=== PATIENT | female | born 1970 | race Caucasian/White ===

== ENCOUNTER 2021-04-14 09:17 | Emergency (ER) | payer SELFPAY ==
--- OUTSIDE RECORDS SUMMARY | 2021-04-14 09:28 | XMS REPORT | Continuity of Care Document ---
:1970 Author Organization [facility] t Address [address] [place] [address] Care Team Providers Name Role Phone Sharpless Primary Care Physician YAHIR Attending Clinician Unavailable Holly MOODY Attending Clinician Unavailable MICHOACANO Attending Clinician Unavailable NICK Attending Clinician Unavailable VINNY VALENTINO Attending Clinician Unavailable Yon HARRISON Admitting Clinician Unavailable BRINDA MOODY Admitting Clinician Unavailable DR ANUM Admitting Clinician Unavailable MICHOACANO Admitting Clinician Unavailable NICK Admitting Clinician Unavailable VINNY VALENTINO Admitting Clinician Unavailable Problems Condition Condition Condition Status Onset Resolution Last Treating Co mments Source Name Details Category Date Date Treatment Clinician Date ankle pain ankle pain Diagnosis Active 2017-[address] [facility] ([facility]SA) Abdominal Abdominal Problem Active [facility] pain [facility] (LU[facility]LI V/SA) Nausea and Nausea and Problem Active [facility] vomiting vomiting 05-08 [facility] ([facility]LI [facility]/SA) Spasm Spasm Problem Active [facility] (LUF/LI V/SA) Anxiety Anxiety Problem Active [facility] (LUF/LI V/SA) Migraine Migraine Problem [facility] ([facility]LI [facility]/SA) Headache [facility] (LUF/LI V/SA) Syncope Syncope Problem Active [facility] (LUF/LI V/SA) Ischemic Ischemic Disease [facility] Chest wall Chest wall Problem Active [facility] pain pain 9-10 [facility] (LU[facility]/LI V/SA) Migraine Migraine Problem [facility] aura aura [facility]: [facility] (LUF/LI V/SA) CVA/HEADAC CVA/HEADAC Diagnosis Active [facility]- [facility] (LUF/LI V/SA) Nausea and Nausea and Problem Active [facility] vomiting vomiting 5[facility] (LUF/LI V/SA) Abdominal Abdominal Problem Active [facility] (LUF/LI V/SA) TIA TIA Problem [facility]) BREAST BREAST Problem Active [facility] ([facility]LI [facility]) MIGRAINE MIGRAINE Problem [facility] (LUF/LI V/SA) Allergies, Adverse Reactions, Alerts This patient has no known allergies or adverse reactions. Family History Family Member Diagnosis Comments Start Date Stop Date Source Father HEART DISEASE [facility]) Father HYPERTENSION [facility] (LUF/AGUS/SA) Maternal Grandfather COPD [facility] (LUF/AGUS/SA) Maternal Grandmother COPD [facility] (LUF/AGUS/SA) Mother CANCER [facility] (LUF/AGUS/SA) Mother COPD [facility] (LUF/AGUS/SA) Paternal Grandfather CANCER [facility] (LUF/AGUS/SA) Paternal Grandfather COPD [facility] (LUF/AGUS/SA) Paternal Grandmother CANCER [facility] (F/AGUS/SA) Social History Social Habit Start Date Stop Date Quantity Comments Source Sex Assigned At [facility] Cigarettes smoked 2016-12-02 2016-12-02 [facility] - current (pack per 00:00:00 00:00:00 [facility] day) - Reported Cigarette 2016-12-02 2016-12-02 [facility] - pack-years 00:00:00 00:00:00 [facility] Alcohol intake 2016-12-02 2016-12-02 Current [facility] es - 00:00:00 00:00:00 non-drinker of Medical Ce nter alcohol (finding) Smoking Status Start Date Stop Date Source Current every day smoker 2016-12-02 00:00:00 [facility] Medications Ordered Filled Start Stop Current Ordering Indication Dosage Frequency Signature Comments Components Source Medication Medication Date Date Medication? Clinician (SIG) Name Name Amitriptyli Amitriptyli Yes 50MG Q2W [facility] - Hydrochlori Hydrochlori 00:00: [facility] de 25 MG de 25 MG 00 l Oral Tablet Oral Tablet ( LUF/LI V/SA) ASPIRIN ASPIRIN Yes 81MG [facility] TABLET TABLET 6[facility] - CHEWABLE CHEWABLE 00:00: [facility] 00 l (LUF/LI V/SA) Sertraline Sertraline 2014-0 Yes [address]MG [facility] 50 MG Oral 50 MG Oral 6-15 [facility] es - Tablet Tablet 00:00: [facility] 00 [facility] (LUF/LI V/SA) Acetaminoph Acetaminoph Yes pain 1tab Q5H [facility] en 300 MG / en 300 MG / L ukes - Codeine Codeine [facility] Phosphate Phosphate l 30 MG Oral 30 MG Oral (LILIYA F/LI Tablet Tablet V/SA) Lorazepam Lorazepam Yes .5mg BID [facility]) Tamoxifen Tamoxifen Yes 20mg QD [facility] Oral 20 MG Oral [facility] - Tablet Tablet [facility] (LUF/LI V/SA) Immunizations Ordered Immunization Filled Immunization Date Status Commen ts Source Name Name FLU VACCINE JUL 2013 FLU VACCINE JUL 2013 2018-09-13 Completed [facility] - 00:00:00 [facility] (LUF/AGUS/SA) pneumococcal pneumococcal 2013-07-14 Completed [facility] es - vaccine, NOS vaccine, NOS 00:00:00 [facility] (LUF/AGUS/SA) Vital Signs Vital Name Observation Time Observation Value Comments Source Respiratory Rate 2018-11-18 13:15:00 16 /min [facility] (LUF/AGUS/SA) Body Temperature 2018-11-18 10:55:[address] [facility] (LUF/AGUS/SA) Pulse Rate 2018-11-18 10:55:00 88 /min [facility] (LUF/AGUS/SA) O2% BldC Oximetry 2018-11-18 10:55:00 98 % [facility] (LUF/AGUS/SA) BP Systolic 2018-11-18 10:55:00 124 mm[Hg] [facility] (LUF/AGUS/SA) BP Diastolic 2018-11-18 10:55:00 66 mm[Hg] [facility] (LUF/AGUS/SA) Weight Measured 2018-11-18 04:00:00 125.44 lbs [facility] (LUF/AGUS/SA) Height 2018-11-17 13:13:00 65 in [facility] (LUF/AGUS/SA) BMI (Body Mass Index) 2018-11-17 13:13:00 20.8 kg/m2 [facility] (LUF/AGUS/SA) Pulse Rate 2018-09-07 15:51:00 91 /min [facility] (LUF/AGUS/SA) Respiratory Rate 2018-09-07 15:51:00 18 /min [facility] (F/AGUS/SA) O2% BldC Oximetry 2018-09-07 15:51:00 [address] % [facility] (LUF/AGUS/SA) BP Systolic 2018-09-07 15:51:00 145 mm[Hg] [facility] (LUF/AGUS/SA) BP Diastolic 2018-09-07 15:51:00 71 mm[Hg] [facility] (LUF/AGUS/SA) Height 2018-09-07 15:51:00 65 in [facility] (LUF/AGUS/SA) Weight Measured 2018-09-07 15:51:00 121.25 lbs [facility] (LUF/AGUS/SA) BMI (Body Mass Index) 2018-09-07 15:51:[address] [facility] (LUF/AGUS/SA) Body Temperature 2018-09-07 15:51:[address] [facility] (LUF/AGUS/SA) Body Temperature 2018-03-29 14:46:[address] [facility] (LUF/AGUS/SA) Respiratory Rate 2018-03-29 14:46:00 22 /min [facility] (LUF/AGUS/SA) O2% BldC Oximetry 2018-03-29 14:46:00 100 % [facility] (LUF/AGUS/SA) BP Systolic 2018-03-29 14:46:00 121 mm[Hg] [facility] (LUF/AGUS/SA) BP Diastolic 2018-03-29 14:46:00 77 mm[Hg] [facility] (LUF/AGUS/SA) Height 2018-03-29 14:46:00 65 in [facility] (LUF/AGUS/SA) Weight Measured 2018-03-29 14:46:00 114.64 lbs [facility] (LUF/AGUS/SA) BMI (Body Mass Index) 2018-03-29 14:46:[address] [facility] (F/AGUS/SA) Procedures This patient has no known procedures. Encounters Start End Encounter Admission Attending Care Care Encounter Source Date/Time Date/Time Type Type Clinicians Facility Department ID 2018-11-17 2018-11-18 HEADACHE E TARAPASADE, [facility] [id number] 14:35:00 16:30:00 MARCIA [facility] [address] (LUF[address], V/SA) [place] [id number] 2018-09-07 2018-09-07 Inpatient 1 FRANSISCO, [facility] [id number] 14:09:00 16:58:00 GISELE PARRY [facility] [address] (LUF/[address], V/SA) [place] [address] 2018-03-29 2018-03-29 RIGHT 1 ANUM, [facility] [id number] [facility] 14:25:00 20:41:00 LOWER [facility] s [facility], [facility] PAIN [address] (LUF/LI [address], V/SA) [place] [address] Results Test Description Test Time Test Comments Results Result Comments Source HOMOCYSTEINE, CARDIOVASCULAR 2018-11-19 09:32:00 Test Item Value Reference Range Interpretation Comme nts HOMOCYST(E)INE, PLASMA (test code = 087069) 6.2 umol/L 0.0-15.0 N PERFORMED AT: [facility] [address] [id number] RETIREMENT ACTUARY: Rashaad Estrella MD PHONE: [phone] 18:31:00 Test Item Value Reference Range Interpretation Comments FT (test code = RPR) Non-Reactive (qualifier Non-Reactive N value) GLYCOSALATED [id number] 08:36:00 Test Item Value Reference Range Interpretation Comments Hemoglobin A1C (test 5.8 % 4.3-6.0 A code = GLYCO) Mean Plasma Glucose 129 mg/dl 90-180 WHEN CHAPARRO T RESULTS FOR (test code = MPG) A1C EXCEED 14.0, THE LINEAR LIMIT OF THE INSTRUMENT, THE CALCULATED RESU LT FOR THE MEAN GLUCOS E IS NOT RELIABLE. TSH (Ultra Sensitive)2018-11-18 05:59:00 Test Item Value Reference Range Interpretation Comments TSH (test code = TSH) 1.18 mIU/L 0.35-3.74 [id number] 05:59:00 Test Item Value Reference Range Interpretation Comments Sodium (test code = 144 mmol/l 137-145 NA) Potassium (test 4.1 mmol/l 3.5-5.1 code = K) Chloride (test code 112 mmol/l 98-107 H = CL) Calcium (test code 8.0 mg/dl 8.5-10.1 L = CALC) CO2 (test code = 23 mmol/l 21-32 CO2) Glucose (test code 99 mg/dl 74-106 = GLU) BUN (test code = 13.0 mg/dl 7.0-18.0 BUN) Creatinine (test 0.5 mg/dl 0.5-1.3 code = CREA) EGFR if >60 [place] (test code mL/min/1.73m\\ = EGFRAA) S\\2 EGFR if Non- >60 Estimate d Glomerular [place] (test code mL/min/1.73m\\ Filtrat ion Rate (eGFR) = EGFRNA) S\\2 Reference Inter vals Decision Points for 18 years and older and average body ma ss: >= 60 Does not exc lude kidney disease. 30 - 59 Suggests modera te chronic kidney disease and indicat es the need for furthe r investigation including asses sment of proteinuria and cardiovascular factors. < 30 Usually in dicates a need for refe rral for assessment and management of c hronic kidney failure. CORONARY [id number] 05:59:00 Test Item Value Reference Range Interpretation Comments Triglycerides (test 250 mg/dl 0-149 H Trig. In terpretation code = TRIG) Guide: Nor mal: < 150 mg/dl Borderline High : 150 - 199 mg/dl High: 200 - 499 mg/dl Very High: >= 5 00 mg/dl Cholesterol (test code 185 mg/dl 0-200 = CHOL) HDL (test code = HDL) 37 mg/dl 35-86 dLDL (test code = 107 mg/dl 0-99 H Direct LDL DILDL) Intrepretations : Optimal: <100 mg/dl Suspect: 100 - 129 mg/dl Border line: 130 - 159 mg/dl High: 160 - 189 mg/dl Very High: >1 90 mg/dl Risk Factor (test code 5.0 0.0-4.4 H Risk Factor = RFACT) Men Women R isk Factor 3.4 3.3 1/ 2 Average 5.0 4.4 Average 9.6 7.1 2X Average 24.0 11.0 3X Average vLDL (test code = 50 mg/dl 20-40 H VLDL) CBC (HEMOGRAM ONLY)2018-11-18 05:39:00 Test Item Value Reference Range Interpretation Comments WBC (test code = 5.30 10\\S\\3/ul 4.80-10.80 WBC) RBC (test code = 3.28 10\\S\\6/ul 4.20-5.40 L RBC) Hemoglobin (test 11.9 gm/dl 12.0-14.0 L code = HGB) Hematocrit (test 35.2 % 37.0-47.0 L code = HCT) MCV (test code = 107.3 fL 81.0-99.0 H MCV) MCH (test code = 36.3 pg 27.0-31.0 H MCH) MCHC (test code = 33.8 gm/dl 33.0-37.0 MCHC) RDW (test code = 15.3 % 11.5-14.5 H RDWVC) Platelet (test code 334 10\\S\\3/ul 130-400 = PLT) MPV (test code = 8.7 fL 7.4-10.4 A "NOT MEASUR ED" MPV) RESULTS ARE DIS PLAYED WHEN THE INSTRU MENT HAS A SUPPRESSE D OR UNREPORTABLE RE SULT. THIS WILL MOST OFTEN HAPPEN WITH THE MPV WHEN THERE IS A N ABNORMAL PLATEL ET DISTRIBUTION DU E TO A CRITICAL LOW VA LUE OR PLATELET CLUMPI NG. THE RDW MAY BE SUPPRESSED IF T HERE ARE MULTIPLE PE AKS PRESENT ON THE RBC HISTOGRAM. IN THIS CASE, A MANUAL REVIEW OF THE SLIDE WI LL BE PERFORMED, AND RBC MORPHOLOGY WILL BE NOTED ON THE RE PORT. MRA HEAD W/O [id number] 21:34:17CVA; Right side weaknessProcedure: MRA HEAD W/O CONTRASTOrder Date: 11/17/2018 12:46 PMOrdering Provider: LISA CHARLESUClinical Indication: [id number]: Transient cerebral ischemia, right hemiparesis.Comparison: NoneTechnique: 3-D [id number] MRA of the brain was obtained without theadministration of IV contrast.Findings:The petrous, cavernous, and supraclinoid internal carotid artery segments have anormal appearance bilaterally.The anterior cerebral arteries are patent without stenosis.The middle cerebral arteries are patent without stenosis.The distal vertebral arteries are patent without stenosis.The basilar artery is patent without stenosis.The superior cerebellar arteries are patent without stenosis.The posterior cerebral arteries are patent without stenosis.There is no intracranial aneurysm. There is no arteriovenous shunting.Impression: Negative MRA of the brain.This final report was electronically signed by Dr Chavez Pulliam MD 11/17/20189:27 PMDictated By: CHAVEZ PULLIAM.Date: 11/17/2018 21:27MRI BRAIN W/O [id number] 21:31:27CVA; Right side weaknessProcedure: MRI BRAIN W/O CONTRASTOrder Date: 11/17/2018 12:46 PMOrdering Provider: LISA CHARLESUClinical Indication: [id number]: Transient cerebral ischemia, right hemiparesisComparison: CT brain November 17, 2018Technique: Multiplanar MRI of the brain was obtained without the administrationof IV contrast.Findings:Ventricular size and configuration are normal. There is no midline shift orhydrocephalus.There is normal signal within the cortical demarco matter, subcortical whitematter, and periventricular white matter.There is normal signal within the deep demarco matter nuclei. There is normalsignal within the cerebellum. There is normal signal within the brainstem.There is no evidence of an acute infarct.There is no parenchymal hemorrhage.The pituitary gland is normal in size. There are no pineal masses.There are normal intracranial vascular flow voids.The foramen magnum is normal.The orbits are intact.There is normal signal within the paranasal sinuses.IMPRESSION:1. Negative MRI of the brain without the administration of IV contrast.This final report was electronically signed by Dr Chavez Pulliam MD 11/17/20189:25 PMDictated By: CHAVEZ PULLIAMDate: 11/17/2018 21:25URINALYSIS WITH [id number] 18:18:00 Test Item Value Reference Range Interpretation Comments Color (test code = YELLOW UCOLR) Clarity (test code = CLEAR UCLAR) Glucose (test code = NEGATIVE NEGATIVE N UGLUC) Bilirubin (test code = NEGATIVE NEGATIVE N UBILI) Ketones (test code = NEGATIVE NEGATIVE N UKET) Specific [place] (test 1.020 1.005-1.030 A code = USPGR) Blood (test code = UBLD) SMALL NEGATIVE A PH (test code = UPH) 6.0 4.5-8.0 A Protein (test code = NEGATIVE NEGATIVE N UPROT) Urobilinogen (test code 0.2 >0.2 N = U UROB) Nitrite (test code = NEGATIVE NEGATIVE N UNITR) Leukocyte Esterase (test TRACE NEGATIVE A code = ULEUK) WBC (test code = WBCUR) 0-5 0-5 N RBC (test code = RBCUR) 5-10 0-5 A Epithial Cells (test 10-20 0-10 A code = U EPI) Mucous (test code = Trace None Seen A UMUC) Bacteria (test code = Trace None Seen,Trace N UBACT) Crystals Urine (test Trace Amorphous None Seen A code = URCRYS) Sediment US CAROTID BILAT [id number] 18:01:52Procedure: US CAROTID BILAT DopplerOrder Date: 11/17/2018 2:46 PMOrdering Provider: LISA Breauxinical Indication: [id number]: Transient cerebral ischemiaComparison: 07/25/2017TECHNIQUE : Real-time cerebrovascular ultrasonography was obtained from sternalnotch to the angle of the mandible bilaterally utilizing demarco scale, color flow,pulse analysis, and spectral Doppler analysis. Systolic velocity ratios werecalculated for internal carotid artery to common carotid artery bilaterally.FINDINGS:RIGHT CAROTID BIFURCATION: Mild calcified atherosclerotic plaque. Peak systolicand end-diastolic velocities in the right internal carotid artery are 129 and 54cm/s. Internal carotid/common carotid ratiois 1.4. Right vertebral flow isantegrade.LEFT CAROTID BIFURCATION: Mild calcified atherosclerotic plaque. Peak systolicand end-diastolic velocities in the left internal carotid artery are 96 and 46cm/s. Internal carotid/common carotid ratio is 0.9. Left vertebral flow isantegrade.IMPRESSION:1. Mild calcified atherosclerotic plaque in each carotid bulb and ICA origin.2. Stenosis of the right internal carotid artery origin approaching 50%.3. No significant stenosis of the left internal carotid artery origin (1-15%).4. Bilateral antegrade vertebral artery flow.This final report was electronically signed by Dr Chavez Pulliam MD 11/17/20185:55 PMDictated By: CHAVEZ PULLIAMDate: 11/17/2018 17:55 SP PERC PLMNT MIDLINE NO PORT > 5 y/o [id number] 16:33:24er t-1 Procedure: SP PERC PLMNT MIDLINE NO PORT > 5 y/o W/IMAGINGOrder Date: 11/17/2018 3:24 PMOrderingProvider: CLEMENT ANYANWUClinical Indication: Vascular accessTechnique:The patient was placed supine on the exam table with the left arm abducted. Anultrasound was performed to locate a proper venous access site. The upper armwas prepped and draped in the usual sterile fashion. Utilizing 1% lidocainesolution, the skin and subcutaneous tissues overlying the basilic vein wereanesthetized. The vein is patent. Then, under ultrasound guidance, the vein waspunctured with a micropuncture needle and a0.018 guidewire was advanced intothe selected vessel. The needle was removed and the 20 gauge Powerg lidecatheter was advanced over the wire into the left axillary vein. The wire wasremoved. The catheter was secured to the skin in the usual fashion.Reagent Tender Helper images were recorded and stored in the medical record fordocumentation. The patient tolerated the procedure well and there were noimmediate complications.Impression:1. Successful upper extremity vascular access.This final report was electronically signed by Dr Chavez Pulliam MD 11/17/20184:27 PMDictated By: CHAVEZ PULLIAM.Date: 11/17/2018 16:[id number] 15:20:00 Test Item Value Reference Range Interpretation Comments aPTT (test code = 16.2 seconds 23.0-33.0 L The value .* PTT) originally rele ased by [id number] on 11/17 15:14 was vang ed to 16.2 by [id number] on 11/17/2018 15:2 0 Tr 1PT AND [id number] 15:14:00 Test Item Value Reference Range Interpretation Comments Protime (test code 10.8 seconds 9.0-11.9 = PT) INR (test code = 1.1 0.9-1.1 INR results are INR) intended ONLY t o monitor Oral Anticoagulant t herapy in stablized pa tients. The INR Therape utic Range is 2.0 - 3.0 Patients with a mechanical hear t, the INR Range is 2. 5 - 3.5 Tr 1STAT LAB CBC WITH AUTO [id number] 14:40:00 Test Item Value Reference Range Interpretation Comments WBC (test code = 6.18 10\\S\\3/ul 4.80-10.80 WBC) RBC (test code = 4.18 10\\S\\6/ul 4.20-5.40 L RBC) Hemoglobin (test 14.8 gm/dl 12.0-14.0 H code = HGB) Hematocrit (test 43.3 % 37.0-47.0 code = HCT) MCV (test code = 103.6 fL 81.0-99.0 H MCV) MCH (test code = 35.4 pg 27.0-31.0 H MCH) MCHC (test code = 34.2 gm/dl 33.0-37.0 MCHC) Platelet (test code 87 10\\S\\3/ul 130-400 L = PLT) RDW (test code = 15.4 % 11.5-14.5 H RDWVC) MPV (test code = 13.1 fL 7.4-10.4 A MPV) NE% (test code = NE) 51.5 % 42.0-75.0 LY% (test code = LY) 40.8 % 13.0-42.0 MO% (test code = MO) 5.3 % 4.0-14.0 EO% (test code = EO) 1.5 % 1.0-3.0 BA% (test code = BA) 0.3 % 1.0-3.0 L IG% (test code = 0.6 % 0.0-0.4 H IG%) Platelet Morphology Platelet clumping No previous value (test code = was reported. A PLTMORPH) value of Platel et clumping was entered by [id number] on 11/17/2018 14:40 Tr 1ST LAB [id number] 13:54:00 Test Item Value Reference Range Interpretation Comments Troponin-I (test 0.01 ng/ml 0.000-0.034 The 99th Pe rcentile URL is code = TROP) 0.045 ng/mL for the Siemens [place] T roponin I. The Joint Europ ingrid Society of Cardiology/A merican College of Card iology (ESC/ACC) and t he National Academy of Clin ical Biochemistry St andards of Laboratory Prac tices (NACB) recommen ds that the diagnosis of AM I includes the presence of clinical history suggest ivonne of Acute Coronary Syndrome (ACS) and a max imum concentration o f cardiac troponin exceed ing the 99th percentile of a normal referenc e population [upp er reference limit (URL)] on at least one oc casion during the firs t 24 hours after the clini faisal event. Tr 1STAT LAB CHEM [id number] 13:48:00 Test Item Value Reference Range Interpretation Comments Sodium (test code = NA) 137 mmol/l 138-146 L Potassium (test code = K) 5.5 mmol/l 3.5-4.9 H Chloride (test code = CL) 107 mmol/l 98-109 Ca2+ (test code = BGCCA2+) 1.04 mmol/l 1.12-1.32 L CO2 (test code = CO2) 24 mmol/l 24-29 Glucose (test code = GLU) 135 mg/dl 70-105 H BUN (test code = BUN) 26 mg/dl 6-17 H Creatinine (test code = CREA) 0.6 mg/dl 0.6-1.3 Tr 1XR CHEST AP/PA 1 [id number] 13:40:08Tr 1Procedure: XR CHEST AP/PA 1 VIEWOrder Date: 11/17/2018 1:18 PMOrdering Provider: LISA Breauxinical Indication: [id number]: HeadacheComparison: 03/31/2017Findings:Postoperative change consisting of bilateral mastectomies and left axillarydissection.Cardiac size is normal.Pulmonary vasculature is normal.Mediastinal contour is normal.Aortic contour is normal.There is no consolidation or effusion.There is no evidence of active tuberculosis.There is no mass or pneumothorax.There is no skeletal abnormality.Impression:1. No consolidation or effusion.2. No evidence of metastatic disease by plain film.3. Postoperative change consisting of bilateral mastectomies and left axillarydissection.4. No othersignificant findings.This final report was electronically signed by Dr Chavez Pulliam MD 11/17/20181:33 PMDictated By: CHAVEZ PULLIAMDate: 11/17/2018 13:33CT BRAIN (CODE TPA/ ACUTE STROKE PROTOCOL) W/O [id number] 13:35:23Tr 1Procedure: CT BRAIN (CODE TPA/ ACUTE STROKE PROTOCOL) W/O CONOrder Date: 11/17/2018 1:18 PMOrderingProvider: CLEMENT ANYANWUClinical Indication: [id number]: HeadacheComparison: NoneTechnique: Using a helical scanner, sequential axial imaging of the brain wasobtained without the administration of intravenous contrast. The exam wasobtained from the skull base to vertex. This exam was performed according to theour departmental dose-optimization program which includes automated exposurecontrol, adjustment of the mA and/or kV according to patient size and/or use ofiterative reconstruction techniques.F indings:Ventricular size and configuration are normal.There is no midline shift or hydrocephalus.There is no acute intracranial hemorrhage or mass effect.There is no acute infarct.Cortical demarco matter,subcortical white matter, and periventricular white matterhave normal appearance.The calvarium is intact. There is no fracture.There is no lytic or sclerotic lesion.The visualized paranasal sinuses andmastoid air cells are clear.IMPRESSION:Negative CT scan of the brain without intravenous contrast administration.This final report was electronically signed by Dr Chavez Pulliam MD 11/17/20181:29 PMDictated By: CHAVEZ PULLIAMDate: 11/17/2018 13:29XR ANKLE COMP MIN 3 [id number] 16:54:05Procedure: XR ANKLE COMP MIN 3 VIEWSOrder Date: 09/07/2018 4:28 PMOrdering Provider: SARAH Minorical Indication: LIMB PAIN: Pain- Limbrolled right ankleComparison: NoneFINDINGS:No acute fracture or subluxation.The articular surface of the right ankle has a normal appearance.The talus and calcaneus have a normal appearance.The visualized portions of the mid foot and forefoot are normal.No joint effusion.No significant soft-tissue swelling.No subcutaneous gas evident.No radiopaque foreign body.IMPRESSION:1. Negative exam of the right ankle.This final report was electronically signed by Dr Chavez Pulliam MD 09/07/20184:47 PMDictated By: CHAVEZ PULLIAMDate: 09/07/2018 16:47CT ABDOMEN/PELVIS W/O [id number] 19:32:13Procedure: CT ABDOMEN/PELVIS W/O CONTRASTOrder Date: 03/29/2018 6:42 PMOrdering Provider: DR RENE Suggsinical Indication: ABD PAIN: Pain- Abdominalacute abd painComparison: March 12, 2016Technique: Using a helical scanner, sequential axial imaging of the abdomen andpelvis was obtained without the administration of oral or IV contrast. The examextended from the level of the lung bases superiorly to the level of the pubicsymphysis inferiorly. 2-D sagittal and coronal reconstructed images wereobtained. This exam was performed according to the departmentaldose-optimization program which includes automated exposure control, adjustmentof the mA and/or kV according to patient size and/or use of i terativereconstruction techniques.Findings:The lung bases are clear. No basilar consolidation or effusion.The liver is normal in size and density. Hepatic contour is normal. There are nohepatic masses.No intrahepatic ductal dilatation.The gallbladder has been removed.The spleen is normal in size and d ensity. There are no intrinsic splenic masses.There is no evidence of a subcapsular hematoma or fluid collection.The pancreas is normal in size and density. There are no pancreaticcalcifications or masses. There is no pancreatic ductal dilatation.The adrenal glands are normal in size bilaterally.Thereare no adrenal masses bilaterally.The right kidney is normal in size and shape.There are no calculi,masses, or hydronephrosis.The left kidney is normal in size and shape.3 mm calculus in an interpolarcalyx of the left kidney.No other left renal or ureteral calculi.There are no masses or hydronephrosis.Aorta is normal in size and diameter. There is no aneurysm.The IVC is normal in size and location.T here is no lymphadenopathy in the abdomen, pelvis, or either inguinal region.Mild diverticulosis of the sigmoid colon without evidence of diverticulitis.There is no small or large bowel distention. There is no bowel thickening. Thereare no inflammatory changes in the abdomen or pelvis.The appendix hasbeen removed.Urinary bladder has a normal appearance.The uterus is normal in size and anteverted.No inguinal masses.Degenerative disc disease at L4-5 and L5-J2HNUGEXHUPJ:1. Mild diverticulosis of the sigmoid colon without diverticulitis.2. No acute inflammatory change in the abdomen or pelvis.3. No bowel obstruction.4. Nonobstructive left nephrolithiasis.5. No other urinary tract calculi or hydronephrosis.6. Postoperative change consisting of cholecystectomy and appendectomy.7. No other significant findings.This final report was electronically signed by Dr Chavez Pulliam MD 03/29/20187:26 PMDictatedBy: CHAVEZ PULLIAM.Date: 03/29/2018 19:32US INTRAVAGINAL PELVIS 2018-03-29 17:29:27er 7Procedure: US INTRAVAGINAL PELVISOrder Date: 03/29/2018 3:45 PMOrdering Provider: DR RENE Suggsinical Indication: RLQ painComparison: March 12, 2016Technique: Transabdominal and endovaginal ult rasound of the pelvis was obtained.Findings:The uterus measures 5.3 x 2.5 x 3.8 cm in CC, AP, and transverse dimensions.The uterine volume is 26 mL. The uterus is anteverted. There are no uterinemasses. The endometrial complex measures 3 mm which is within normal limits.There are no masses.The ovaries are not visualized.No solid or cystic adnexal masses.No free fluid in the pelvis.Impression:1. Normal sonographic evaluation of the uterus and endometrium.2. The ovaries are not visualized. There areno solid or cystic adnexal masses.3. No free fluid in the pelvis.4. No other significant findings.This final report was electronically signed by Dr Chavez Pulliam MD 03/29/20185:23 PMDictated By: CHAVEZ PULLIAMDate: 03/29/2018 17:29LIPASE, [id number] 16:13:00 Test Item Value Reference Range Interpretation Comments Lipase (test code = LIPA) 89 U/L 8-223 e [id number] 16:13:00 Test Item Value Reference Range Interpretation Comments Glucose (test code 84 mg/dl 75-110 = GLU) BUN (test code = 13.0 mg/dl 6.0-17.0 BUN) Creatinine (test 0.5 mg/dl 0.4-1.2 code = CREA) Sodium (test code = 138 mmol/l 137-145 NA) Potassium (test 3.8 mmol/l 3.5-5.0 code = K) Chloride (test code 109 mmol/l 98-107 H = CL) CO2 (test code = 21 mmol/l 22-30 L CO2) Calcium (test code 9.4 mg/dl 8.4-10.2 = CALC) T Protein (test 8.6 gm/dl 5.1-8.7 code = TP) Albumin (test code 4.9 gm/dl 3.5-4.6 H = ALB) A/G Ratio (test 1.3 % 1.1-2.2 code = AGRAT) AST (SGOT) (test 26 U/L 11-36 code = AST) ALT (SGPT) (test 31 U/L 11-40 code = ALT) Alkaline Phos (test 72 U/L 47-114 code = ALKP) Total Bilirubin 0.3 mg/dl 0.2-1.2 (test code = TBIL) Globulin (test code 3.7 gm/dl 2.3-3.5 H = GLOBU) Calcium, Corrected 8.7 mg/dl 8.4-10.2 Various f ormulas exist (test code = for corrected s martha CALCCORR) calcium results , each yielding differ ent values. This corrected resul t was based on the fo rmula: Corrected Calci um = SerumCalcium + [0.8 * ( 4 - SerumAlbu min)] EGFR if >60 [place] (test code mL/min/1.73m\\ = EGFRAA) S\\2 EGFR if Non- >60 Estimate d Glomerular [place] (test code mL/min/1.73m\\ Filtrat ion Rate (eGFR) = EGFRNA) S\\2 Reference Inter vals Decision Points for 18 years and older and average body ma ss: >= 60 Does not exc lude kidney disease. 30 - 59 Suggests modera te chronic kidney disease and indicat es the need for furthe r investigation including asses sment of proteinuria and cardiovascular factors. < 30 Usually in dicates a need for refe rral for assessment and management of c hronic kidney failure. e r7CBC WITH AUTO [id number] 16:11:00 Test Item Value Reference Range Interpretation Comments WBC (test code = 6.27 10\\S\\3/ul 4.80-10.80 WBC) RBC (test code = 3.45 10\\S\\6/ul 4.20-5.40 L RBC) Hemoglobin (test 12.0 gm/dl 12.0-14.0 code = HGB) Hematocrit (test 34.7 % 37.0-47.0 L code = HCT) MCV (test code = 100.6 fL 81.0-99.0 H MCV) MCH (test code = 34.8 pg 27.0-31.0 H MCH) MCHC (test code = 34.6 gm/dl 33.0-37.0 MCHC) RDW (test code = 12.9 % 11.5-14.5 RDWVC) Platelet (test code 364 10\\S\\3/ul 130-400 = PLT) MPV (test code = 8.7 fL 7.4-10.4 A "NOT MEASUR ED" MPV) RESULTS ARE DIS PLAYED WHEN THE INSTRU MENT HAS A SUPPRESSE D OR UNREPORTABLE RE SULT. THIS WILL MOST OFTEN HAPPEN WITH THE MPV WHEN THERE IS A N ABNORMAL PLATEL ET DISTRIBUTION DU E TO A CRITICAL LOW VA LUE OR PLATELET CLUMPI NG. THE RDW MAY BE SUPPRESSED IF T HERE ARE MULTIPLE PE AKS PRESENT ON THE RBC HISTOGRAM. IN THIS CASE, A MANUAL REVIEW OF THE SLIDE WI LL BE PERFORMED, AND RBC MORPHOLOGY WILL BE NOTED ON THE RE PORT. NE% (test code = 50.5 % 42.0-75.0 NE) LY% (test code = 37.2 % 13.0-42.0 LY) MO% (test code = 10.4 % 4.0-14.0 MO) EO% (test code = 1.1 % 1.0-3.0 EO) BA% (test code = 0.5 % 1.0-3.0 L BA) IG% (test code = 0.3 % 0.0-0.4 IG%) e [id number] WITH [id number] 16:00:00 Test Item Value Reference Range Interpretation Comments Color (test code = UCOLR) YELLOW Clarity (test code = UCLAR) CLEAR Glucose (test code = UGLUC) NEGATIVE NEGATIVE N Bilirubin (test code = UBILI) NEGATIVE NEGATIVE N Ketones (test code = UKET) TRACE NEGATIVE A Specific [place] (test code = >=1.030 1.005-1.030 A USPGR) Blood (test code = UBLD) TRACE-INTACT NEGATIVE A PH (test code = UPH) 6.0 4.5-8.0 A Protein (test code = UPROT) NEGATIVE NEGATIVE N Urobilinogen (test code = U 1.0 >0.2 A UROB) Nitrite (test code = UNITR) NEGATIVE NEGATIVE N Leukocyte Esterase (test code = TRACE NEGATIVE A ULEUK) WBC (test code = WBCUR) 20-30 0-5 A RBC (test code = RBCUR) 0-5 0-5 N Epithial Cells (test code = U 10-20 0-10 A EPI) Mucous (test code = UMUC) Trace None Seen A Bacteria (test code = UBACT) 1+ None Seen,Trace A e [id number] TEST, Urine [id number] 15:38:00 Test Item Value Reference Range Interpretation Comments (Urine) (test code = Negative PREGU) e [id number] WITH [id number] 20:57:00 Test Item Value Reference Range Interpretation Comments Color (test code = YELLOW UCOLR) Clarity (test code = CLEAR UCLAR) Glucose (test code = NEGATIVE NEGATIVE N UGLUC) Bilirubin (test code = NEGATIVE NEGATIVE N UBILI) Ketones (test code = NEGATIVE NEGATIVE N UKET) Specific [place] (test 1.020 1.005-1.030 A code = USPGR) Blood (test code = UBLD) TRACE-INTACT NEGATIVE A PH (test code = UPH) 6.0 4.5-8.0 A Protein (test code = NEGATIVE NEGATIVE N UPROT) Urobilinogen (test code 0.2 >0.2 N = U UROB) Nitrite (test code = NEGATIVE NEGATIVE N UNITR) Leukocyte Esterase (test SMALL NEGATIVE A code = ULEUK) WBC (test code = WBCUR) 5-10 0-5 A RBC (test code = RBCUR) 5-10 0-5 A Epithial Cells (test 20-30 0-10 A code = U EPI) Mucous (test code = Trace None Seen A UMUC) Bacteria (test code = None Seen None Seen,Trace N UBACT) Crystals Urine (test Trace Amorphous None Seen A code = URCRYS) Urates Urine Casts (test code = None Seen None Seen N UR CAST) PT AND [id number] 20:54:00 Test Item Value Reference Range Interpretation Comments Protime (test code 10.6 seconds 9.0-11.9 = PT) INR (test code = 1.0 0.9-1.1 INR results are INR) intended ONLY t o monitor Oral Anticoagulant t herapy in stablized pa tients. The INR Therape utic Range is 2.0 - 3.0 Patients with a mechanical hear t, the INR Range is 2. 5 - 3.5 er [id number] 20:54:00 Test Item Value Reference Range Interpretation Comments aPTT (test code = PTT) 25.0 seconds 23.0-33.0 er [id number] 20:41:00 Test Item Value Reference Range Interpretation Comments Glucose (test code 82 mg/dl 75-110 = GLU) BUN (test code = 12.0 mg/dl 6.0-17.0 BUN) Creatinine (test 0.6 mg/dl 0.4-1.2 code = CREA) Sodium (test code = 146 mmol/l 137-145 H NA) Potassium (test 4.1 mmol/l 3.5-5.0 code = K) Chloride (test code 110 mmol/l 98-107 H = CL) CO2 (test code = 24 mmol/l 22-30 CO2) Calcium (test code 9.8 mg/dl 8.4-10.2 = CALC) T Protein (test 7.9 gm/dl 5.1-8.7 code = TP) Albumin (test code 4.7 gm/dl 3.5-4.6 H = ALB) A/G Ratio (test 1.5 % 1.1-2.2 code = AGRAT) AST (SGOT) (test 34 U/L 11-36 code = AST) ALT (SGPT) (test 21 U/L 11-40 code = ALT) Alkaline Phos (test 77 U/L 47-114 code = ALKP) Total Bilirubin 0.1 mg/dl 0.2-1.2 L (test code = TBIL) Globulin (test code 3.2 gm/dl 2.3-3.5 = GLOBU) Calcium, Corrected 9.2 mg/dl 8.4-10.2 Various f ormulas exist (test code = for corrected s martha CALCCORR) calcium results , each yielding differ ent values. This corrected resul t was based on the fo rmula: Corrected Calci um = SerumCalcium + [0.8 * ( 4 - SerumAlbu min)] EGFR if >60 [place] (test code mL/min/1.73m\\ = EGFRAA) S\\2 EGFR if Non- >60 Estimate d Glomerular [place] (test code mL/min/1.73m\\ Filtrat ion Rate (eGFR) = EGFRNA) S\\2 Reference Inter vals Decision Points for 18 years and older and average body ma ss: >= 60 Does not exc lude kidney disease. 30 - 59 Suggests modera te chronic kidney disease and indicat es the need for furthe r investigation including asses sment of proteinuria and cardiovascular factors. < 30 Usually in dicates a need for refe rral for assessment and management of c hronic kidney failure. CBC WITH AUTO [id number] 20:39:00 Test Item Value Reference Range Interpretation Comments WBC (test code = 6.17 10\\S\\3/ul 4.80-10.80 WBC) RBC (test code = 3.29 10\\S\\6/ul 4.20-5.40 L RBC) Hemoglobin (test 11.6 gm/dl 12.0-14.0 L code = HGB) Hematocrit (test 34.4 % 37.0-47.0 L code = HCT) MCV (test code = 104.6 fL 81.0-99.0 H MCV) MCH (test code = 35.3 pg 27.0-31.0 H MCH) MCHC (test code = 33.7 gm/dl 33.0-37.0 MCHC) RDW (test code = 11.7 % 11.5-14.5 RDWVC) Platelet (test code 358 10\\S\\3/ul 130-400 = PLT) MPV (test code = 9.3 fL 7.4-10.4 A "NOT MEASUR ED" MPV) RESULTS ARE DIS PLAYED WHEN THE INSTRU MENT HAS A SUPPRESSE D OR UNREPORTABLE RE SULT. THIS WILL MOST OFTEN HAPPEN WITH THE MPV WHEN THERE IS A N ABNORMAL PLATEL ET DISTRIBUTION DU E TO A CRITICAL LOW VA LUE OR PLATELET CLUMPI NG. THE RDW MAY BE SUPPRESSED IF T HERE ARE MULTIPLE PE AKS PRESENT ON THE RBC HISTOGRAM. IN THIS CASE, A MANUAL REVIEW OF THE SLIDE WI LL BE PERFORMED, AND RBC MORPHOLOGY WILL BE NOTED ON THE RE PORT. NE% (test code = 48.1 % 42.0-75.0 NE) LY% (test code = 41.2 % 13.0-42.0 LY) MO% (test code = 8.1 % 4.0-14.0 MO) EO% (test code = 1.6 % 1.0-3.0 EO) BA% (test code = 0.5 % 1.0-3.0 L BA) IG% (test code = 0.5 % 0.0-0.4 H IG%) NRBC, Auto (test 0 /100WBC 0-2 code = NRBC_AUTO) er 8URINALYSIS WITH [id number] 09:00:00 Test Item Value Reference Range Interpretation Comments Color (test code = UCOLR) YELLOW Clarity (test code = UCLAR) CLEAR Glucose (test code = UGLUC) NEGATIVE NEGATIVE N Bilirubin (test code = UBILI) NEGATIVE NEGATIVE N Ketones (test code = UKET) NEGATIVE NEGATIVE N Specific [place] (test code = 1.015 1.005-1.030 A USPGR) Blood (test code = UBLD) TRACE-INTACT NEGATIVE A PH (test code = UPH) 6.5 4.5-8.0 A Protein (test code = UPROT) NEGATIVE NEGATIVE N Urobilinogen (test code = U 0.2 >0.2 N UROB) Nitrite (test code = UNITR) NEGATIVE NEGATIVE N Leukocyte Esterase (test code = SMALL NEGATIVE A ULEUK) WBC (test code = WBCUR) 20-30 0-5 A RBC (test code = RBCUR) 0-5 0-5 N Epithial Cells (test code = U 0-5 0-10 A EPI) Mucous (test code = UMUC) None Seen None Seen N Bacteria (test code = UBACT) Trace None Seen,Trace N Crystals Urine (test code = None Seen None Seen N URCRYS) Urine Casts (test code = UR None Seen None Seen N CAST) er 7LIPASE, [id number] 06:13:00 Test Item Value Reference Range Interpretation Comments Lipase (test code = LIPA) 44 U/L 8-223 er [id number] 06:13:00 Test Item Value Reference Range Interpretation Comments Glucose (test code 112 mg/dl 75-110 H = GLU) BUN (test code = 11.0 mg/dl 6.0-17.0 BUN) Creatinine (test 0.5 mg/dl 0.4-1.2 code = CREA) Sodium (test code = 138 mmol/l 137-145 NA) Potassium (test 3.8 mmol/l 3.5-5.0 code = K) Chloride (test code 106 mmol/l 98-107 = CL) CO2 (test code = 21 mmol/l 22-30 L CO2) Calcium (test code 10.0 mg/dl 8.4-10.2 = CALC) T Protein (test 7.7 gm/dl 5.1-8.7 code = TP) Albumin (test code 4.7 gm/dl 3.5-4.6 H = ALB) A/G Ratio (test 1.6 % 1.1-2.2 code = AGRAT) AST (SGOT) (test 117 U/L 11-36 H code = AST) ALT (SGPT) (test 191 U/L 11-40 H code = ALT) Alkaline Phos (test 121 U/L 47-114 H code = ALKP) Total Bilirubin 1.0 mg/dl 0.2-1.2 (test code = TBIL) Globulin (test code 3.0 gm/dl 2.3-3.5 = GLOBU) Calcium, Corrected 9.4 mg/dl 8.4-10.2 Various f ormulas exist (test code = for corrected s martha CALCCORR) calcium results , each yielding differ ent values. This corrected resul t was based on the fo rmula: Corrected Calci um = SerumCalcium + [0.8 * ( 4 - SerumAlbu min)] EGFR if >60 [place] (test code mL/min/1.73m\\ = EGFRAA) S\\2 EGFR if Non- >60 Estimate d Glomerular [place] (test code mL/min/1.73m\\ Filtrat ion Rate (eGFR) = EGFRNA) S\\2 Reference Inter vals Decision Points for 18 years and older and average body ma ss: >= 60 Does not exc lude kidney disease. 30 - 59 Suggests modera te chronic kidney disease and indicat es the need for furthe r investigation including asses sment of proteinuria and cardiovascular factors. < 30 Usually in dicates a need for refe rral for assessment and management of c hronic kidney failure. er 7CBC WITH AUTO [id number] 06:00:00 Test Item Value Reference Range Interpretation Comments WBC (test code = WBC) 6.8 k/ul 4.8-10.8 RBC (test code = RBC) 3.66 Millions/ul 4.20-5.40 L Hemoglobin (test code = HGB) 12.8 gm/dl 12.0-14.0 Hematocrit (test code = HCT) 37.5 % 37.0-47.0 MCV (test code = MCV) 102.5 fL 81.0-99.0 H MCH (test code = MCH) 35.0 pg 27.0-31.0 H MCHC (test code = MCHC) 34.1 gm/dl 33.0-37.0 RDW (test code = RDWVC) 14.6 % 11.5-14.5 H RDW-SD (test code = RDW-SD) 55.0 fL Platelet (test code = PLT) 338 10\\S\\3/ul 130-400 MPV (test code = MPV) 9.0 fL 7.4-10.4 NE% (test code = NE) 55.1 % 42.0-75.0 LY% (test code = LY) 28.5 % 13.0-42.0 MO% (test code = MO) 14.3 % 4.0-14.0 H EO% (test code = EO) 1.2 % 1.0-3.0 BA% (test code = BA) 0.6 % 1.0-3.0 L IG% (test code = IG%) 0.3 % NRBC, Auto (test code = 0 NRBC_AUTO) er 7TSH (Ultra Sensitive)2017-03-31 17:09:00 Test Item Value Reference Range Interpretation Comments TSH (test code = TSH) 0.59 mIU/L 0.47-4.68 HEPATIC FUNCTION PANEL (LIVER)2017-03-31 16:50:00 Test Item Value Reference Range Interpretation Comments T Protein (test code = TP) 8.7 gm/dl 5.1-8.7 Albumin (test code = ALB) 4.9 gm/dl 3.5-4.6 H AST (SGOT) (test code = AST) 91 U/L 11-36 H ALT (SGPT) (test code = ALT) 57 U/L 11-40 H Alkaline Phos (test code = ALKP) 105 U/L 47-114 Total Bilirubin (test code = TBIL) 0.6 mg/dl 0.2-1.2 Direct Bilirubin (test code = DBIL) 0.3 mg/dl 0.0-0.3 Indirect Bilirubin (test code = 0.3 mg/dl 0.0-1.1 IBIL) [id number] 16:50:00 Test Item Value Reference Range Interpretation Comments Glucose (test code 96 mg/dl 75-110 = GLU) BUN (test code = 18.0 mg/dl 6.0-17.0 H BUN) Creatinine (test 0.7 mg/dl 0.4-1.2 code = CREA) Sodium (test code = 142 mmol/l 137-145 NA) Potassium (test 4.2 mmol/l 3.5-5.0 code = K) Chloride (test code 109 mmol/l 98-107 H = CL) CO2 (test code = 18 mmol/l 22-30 L CO2) Calcium (test code 9.9 mg/dl 8.4-10.2 = CALC) EGFR if >60 [place] (test code mL/min/1.73m\\ = EGFRAA) S\\2 EGFR if Non- >60 Estimate d Glomerular [place] (test code mL/min/1.73m\\ Filtrat ion Rate (eGFR) = EGFRNA) S\\2 Reference Inter vals Decision Points for 18 years and older and average body ma ss: >= 60 Does not exc lude kidney disease. 30 - 59 Suggests modera te chronic kidney disease and indicat es the need for furthe r investigation including asses sment of proteinuria and cardiovascular factors. < 30 Usually in dicates a need for refe rral for assessment and management of c hronic kidney failure. [id number] 16:25:00 Test Item Value Reference Range Interpretation Comments aPTT (test code = PTT) 26.8 seconds 23.0-33.0 PT AND [id number] 16:25:00 Test Item Value Reference Range Interpretation Comments Protime (test code 11.2 seconds 9.0-11.9 = PT) INR (test code = 1.1 0.9-1.1 INR results are INR) intended ONLY t o monitor Oral Anticoagulant t herapy in stablized pa tients. The INR Therape utic Range is 2.0 - 3.0 Patients with a mechanical hear t, the INR Range is 2. 5 - 3.5 CBC WITH AUTO [id number] 16:09:00 Test Item Value Reference Range Interpretation Comments WBC (test code = WBC) 6.4 k/ul 4.8-10.8 RBC (test code = RBC) 3.79 Millions/ul 4.20-5.40 L Hemoglobin (test code = HGB) 12.9 gm/dl 12.0-14.0 Hematocrit (test code = HCT) 38.8 % 37.0-47.0 MCV (test code = MCV) 102.4 fL 81.0-99.0 H MCH (test code = MCH) 34.1 pg 27.0-31.0 H MCHC (test code = MCHC) 33.3 gm/dl 33.0-37.0 RDW (test code = RDWVC) 15.6 % 11.5-14.5 H Platelet (test code = PLT) 363 10\\S\\3/ul 130-400 MPV (test code = MPV) 6.7 fL 7.4-10.4 L NE% (test code = NE) 49.2 % 42.0-75.0 LY% (test code = LY) 39.6 % 13.0-42.0 MO% (test code = MO) 10.3 % 4.0-14.0 EO% (test code = EO) 0.5 % 1.0-3.0 L BA% (test code = BA) 0.4 % 1.0-3.0 L NRBC, Auto (test code = 0 NRBC_AUTO) AUTO [id number] 00:54:00 Test Item Value Reference Range Interpretation Comments Glucose (test code 103 mg/dl 75-110 = GLU) BUN (test code = 14.0 mg/dl 6.0-17.0 BUN) Creatinine (test 0.6 mg/dl 0.4-1.2 code = CREA) Sodium (test code = 145 mmol/l 137-145 NA) Potassium (test 4.2 mmol/l 3.5-5.0 code = K) Chloride (test code 106 mmol/l 98-107 = CL) CO2 (test code = 22 mmol/l 22-30 CO2) Calcium (test code 9.3 mg/dl 8.4-10.2 = CALC) T Protein (test 8.5 gm/dl 5.1-8.7 code = TP) Albumin (test code 4.5 gm/dl 3.5-4.6 = ALB) A/G Ratio (test 1.1 % 1.1-2.2 code = AGRAT) AST (SGOT) (test 42 U/L 11-36 H code = AST) ALT (SGPT) (test 35 U/L 11-40 code = ALT) Alkaline Phos (test 91 U/L 47-114 code = ALKP) Total Bilirubin 0.6 mg/dl 0.2-1.2 (test code = TBIL) Globulin (test code 4.0 gm/dl 2.3-3.5 H = GLOBU) Calcium, Corrected 8.9 mg/dl 8.4-10.2 Various f ormulas exist (test code = for corrected s martha CALCCORR) calcium results , each yielding differ ent values. This corrected resul t was based on the fo rmula: Corrected Calci um = SerumCalcium + [0.8 * ( 4 - SerumAlbu min)] EGFR if >60 [place] (test code mL/min/1.73m\\ = EGFRAA) S\\2 EGFR if Non- >60 Estimate d Glomerular [place] (test code mL/min/1.73m\\ Filtrat ion Rate (eGFR) = EGFRNA) S\\2 Reference Inter vals Decision Points for 18 years and older and average body ma ss: >= 60 Does not exc lude kidney disease. 30 - 59 Suggests modera te chronic kidney disease and indicat es the need for furthe r investigation including asses sment of proteinuria and cardiovascular factors. < 30 Usually in dicates a need for refe rral for assessment and management of c hronic kidney failure. er 9CBC WITH AUTO [id number] 00:25:00 Test Item Value Reference Range Interpretation Comments WBC (test code = WBC) 8.1 k/ul 4.8-10.8 RBC (test code = RBC) 3.38 Millions/ul 4.20-5.40 L Hemoglobin (test code = HGB) 12.1 gm/dl 12.0-14.0 Hematocrit (test code = HCT) 37.1 % 37.0-47.0 MCV (test code = MCV) 109.7 fL 81.0-99.0 H MCH (test code = MCH) 35.8 pg 27.0-31.0 H MCHC (test code = MCHC) 32.6 gm/dl 33.0-37.0 L RDW (test code = RDWVC) 15.0 % 11.5-14.5 H Platelet (test code = PLT) 397 10\\S\\3/ul 130-400 MPV (test code = MPV) 6.7 fL 7.4-10.4 L NE% (test code = NE) 58.6 % 42.0-75.0 LY% (test code = LY) 25.0 % 13.0-42.0 MO% (test code = MO) 14.2 % 4.0-14.0 H EO% (test code = EO) 1.6 % 1.0-3.0 BA% (test code = BA) 0.6 % 1.0-3.0 L NRBC, Auto (test code = 0 NRBC_AUTO) er 9BASIC METABOLIC [id number] 07:18:00 Test Item Value Reference Range Interpretation Comments SODIUM (BEAKER) 139 meq/L 136-145 (test code = 381) POTASSIUM (BEAKER) 4.6 meq/L 3.5-5.1 (test code = 379) CHLORIDE (BEAKER) 100 meq/L 98-107 (test code = 382) CO2 (BEAKER) (test 28 meq/L 22-29 code = 355) BLOOD UREA NITROGEN 19 mg/dL 7-21 (BEAKER) (test code = 354) CREATININE (BEAKER) 0.66 mg/dL 0.57-1.25 (test code = 358) GLUCOSE RANDOM 100 mg/dL 70-105 (BEAKER) (test code = 652) CALCIUM (BEAKER) 9.3 mg/dL 8.4-10.2 (test code = 697) EGFR (BEAKER) (test 96 mL/min/1.73 ESTIMA MARTHA GFR IS code = 1092) sq m NOT ACCURATE CREATININE CLEARANCE IN PREDICTING GLOMERULAR FILTRATION RATE . ESTIMATED GFR I S NOT APPLICABLE FOR DIALYSIS PATIEN TS. CBC W/PLT COUNT & AUTO [id number] 06:55:00 Test Item Value Reference Range Interpretation Comments WHITE BLOOD CELL COUNT (BEAKER) 6.2 K/ L 4.0-10.0 (test code = 775) RED BLOOD CELL COUNT (BEAKER) 3.36 M/ L 4.00-5.00 L (test code = 761) HEMOGLOBIN (BEAKER) (test code = 12.3 GM/DL 12.0-15.0 410) HEMATOCRIT (BEAKER) (test code = 38.1 % 36.0-45.0 411) MEAN CORPUSCULAR VOLUME (BEAKER) 113.0 fL 82.0-99.0 H (test code = 753) MEAN CORPUSCULAR HEMOGLOBIN 36.6 pg 27.0-33.0 H (BEAKER) (test code = 751) MEAN CORPUSCULAR HEMOGLOBIN CONC 32.3 GM/DL 32.0-36.0 (BEAKER) (test code = 752) RED CELL DISTRIBUTION WIDTH 12.6 % 10.3-14.2 (BEAKER) (test code = 412) PLATELET COUNT (BEAKER) (test 396 K/CU MM 150-430 code = 756) MEAN PLATELET VOLUME (BEAKER) 6.2 fL 6.5-10.5 L (test code = 754) NUCLEATED RED BLOOD CELLS 0 /100 WBC 0-0 (BEAKER) (test code = 413) NEUTROPHILS RELATIVE PERCENT 48 % (BEAKER) (test code = 429) LYMPHOCYTES RELATIVE PERCENT 38 % (BEAKER) (test code = 430) MONOCYTES RELATIVE PERCENT 11 % (BEAKER) (test code = 431) EOSINOPHILS RELATIVE PERCENT 2 % (BEAKER) (test code = 432) BASOPHILS RELATIVE PERCENT 1 % (BEAKER) (test code = 437) NEUTROPHILS ABSOLUTE COUNT 2.99 K/ L 1.80-8.00 (BEAKER) (test code = 670) LYMPHOCYTES ABSOLUTE COUNT 2.32 K/ L 1.48-4.50 (BEAKER) (test code = 414) MONOCYTES ABSOLUTE COUNT (BEAKER) 0.67 K/ L 0.00-1.30 (test code = 415) EOSINOPHILS ABSOLUTE COUNT 0.13 K/ L 0.00-0.50 (BEAKER) (test code = 416) BASOPHILS ABSOLUTE COUNT (BEAKER) 0.07 K/ L 0.00-0.20 (test code = 417) 0.00BASIC METABOLIC [id number] 05:22:00 Test Item Value Reference Range Interpretation Comments SODIUM (BEAKER) 139 meq/L 136-145 (test code = 381) POTASSIUM (BEAKER) 4.4 meq/L 3.5-5.1 Specimen slightly (test code = 379) hemolyzed CHLORIDE (BEAKER) 103 meq/L 98-107 (test code = 382) CO2 (BEAKER) (test 25 meq/L 22-29 code = 355) BLOOD UREA NITROGEN 9 mg/dL 7-21 (BEAKER) (test code = 354) CREATININE (BEAKER) 0.63 mg/dL 0.57-1.25 Specimen slightly (test code = 358) hemolyzed GLUCOSE RANDOM 115 mg/dL 70-105 H (BEAKER) (test code = 652) CALCIUM (BEAKER) 9.6 mg/dL 8.4-10.2 (test code = 697) EGFR (BEAKER) (test 102 mL/min/1.73 ESTIM ATED GFR IS code = 1092) sq m NOT ACCURATE CREATININE CLEARANCE IN PREDICTING GLOMERULAR FILTRATION RATE . ESTIMATED GFR I S NOT APPLICABLE FOR DIALYSIS PATIEN TS. CBC W/PLT COUNT & AUTO [id number] 05:12:00 Test Item Value Reference Range Interpretation Comments WHITE BLOOD CELL COUNT (BEAKER) 5.8 K/ L 4.0-10.0 (test code = 775) RED BLOOD CELL COUNT (BEAKER) 3.14 M/ L 4.00-5.00 L (test code = 761) HEMOGLOBIN (BEAKER) (test code = 11.9 GM/DL 12.0-15.0 L 410) HEMATOCRIT (BEAKER) (test code = 35.4 % 36.0-45.0 L 411) MEAN CORPUSCULAR VOLUME (BEAKER) 113.0 fL 82.0-99.0 H (test code = 753) MEAN CORPUSCULAR HEMOGLOBIN 38.0 pg 27.0-33.0 H (BEAKER) (test code = 751) MEAN CORPUSCULAR HEMOGLOBIN CONC 33.7 GM/DL 32.0-36.0 (BEAKER) (test code = 752) RED CELL DISTRIBUTION WIDTH 12.7 % 10.3-14.2 (BEAKER) (test code = 412) PLATELET COUNT (BEAKER) (test 377 K/CU MM 150-430 code = 756) MEAN PLATELET VOLUME (BEAKER) 6.0 fL 6.5-10.5 L (test code = 754) NUCLEATED RED BLOOD CELLS 0 /100 WBC 0-0 (BEAKER) (test code = 413) NEUTROPHILS RELATIVE PERCENT 50 % (BEAKER) (test code = 429) LYMPHOCYTES RELATIVE PERCENT 36 % (BEAKER) (test code = 430) MONOCYTES RELATIVE PERCENT 12 % (BEAKER) (test code = 431) EOSINOPHILS RELATIVE PERCENT 1 % (BEAKER) (test code = 432) BASOPHILS RELATIVE PERCENT 1 % (BEAKER) (test code = 437) NEUTROPHILS ABSOLUTE COUNT 2.87 K/ L 1.80-8.00 (BEAKER) (test code = 670) LYMPHOCYTES ABSOLUTE COUNT 2.06 K/ L 1.48-4.50 (BEAKER) (test code = 414) MONOCYTES ABSOLUTE COUNT (BEAKER) 0.69 K/ L 0.00-1.30 (test code = 415) EOSINOPHILS ABSOLUTE COUNT 0.07 K/ L 0.00-0.50 (BEAKER) (test code = 416) BASOPHILS ABSOLUTE COUNT (BEAKER) 0.07 K/ L 0.00-0.20 (test code = 417) 0.00TSH/FREE T4 IF [id number] 13:03:00 Test Item Value Reference Range Interpretation Comments THYROID STIMULATING HORMONE 0.72 uIU/mL 0.35-4.94 (BEAKER) (test code = 772) VITAMIN B12 AND [id number] 13:03:00 Test Item Value Reference Range Interpretation Comments VITAMIN B12 (BEAKER) (test code = 473 pg/mL 213-816 774) FOLATE (BEAKER) (test code = 362) 8.9 ng/mL >=7.0 Effective 08/31/2014: Folate Reference Range ChangeNew: >=7.0 Previous: >=5.4CBC W/PLT COUNT & AUTO [id number] 09:16:00 Test Item Value Reference Range Interpretation Comments WHITE BLOOD CELL COUNT (BEAKER) 8.0 K/ L 4.0-10.0 (test code = 775) RED BLOOD CELL COUNT (BEAKER) 3.11 M/ L 4.00-5.00 L (test code = 761) HEMOGLOBIN (BEAKER) (test code = 11.9 GM/DL 12.0-15.0 L 410) HEMATOCRIT (BEAKER) (test code = 34.7 % 36.0-45.0 L 411) MEAN CORPUSCULAR VOLUME (BEAKER) 112.0 fL 82.0-99.0 H (test code = 753) MEAN CORPUSCULAR HEMOGLOBIN 38.3 pg 27.0-33.0 H (BEAKER) (test code = 751) MEAN CORPUSCULAR HEMOGLOBIN CONC 34.3 GM/DL 32.0-36.0 (BEAKER) (test code = 752) RED CELL DISTRIBUTION WIDTH 12.7 % 10.3-14.2 (BEAKER) (test code = 412) PLATELET COUNT (BEAKER) (test 387 K/CU MM 150-430 code = 756) MEAN PLATELET VOLUME (BEAKER) 5.8 fL 6.5-10.5 L (test code = 754) NUCLEATED RED BLOOD CELLS 0 /100 WBC 0-0 (BEAKER) (test code = 413) NEUTROPHILS RELATIVE PERCENT 70 % (BEAKER) (test code = 429) LYMPHOCYTES RELATIVE PERCENT 19 % (BEAKER) (test code = 430) MONOCYTES RELATIVE PERCENT 9 % (BEAKER) (test code = 431) EOSINOPHILS RELATIVE PERCENT 1 % (BEAKER) (test code = 432) BASOPHILS RELATIVE PERCENT 0 % (BEAKER) (test code = 437) NEUTROPHILS ABSOLUTE COUNT 5.65 K/ L 1.80-8.00 (BEAKER) (test code = 670) LYMPHOCYTES ABSOLUTE COUNT 1.53 K/ L 1.48-4.50 (BEAKER) (test code = 414) MONOCYTES ABSOLUTE COUNT (BEAKER) 0.76 K/ L 0.00-1.30 (test code = 415) EOSINOPHILS ABSOLUTE COUNT 0.07 K/ L 0.00-0.50 (BEAKER) (test code = 416) BASOPHILS ABSOLUTE COUNT (BEAKER) 0.03 K/ L 0.00-0.20 (test code = 417) 0.00BASI METABOLIC [id number] 08:54:00 Test Item Value Reference Range Interpretation Comments SODIUM (BEAKER) 136 meq/L 136-145 (test code = 381) POTASSIUM (BEAKER) 3.9 meq/L 3.5-5.1 (test code = 379) CHLORIDE (BEAKER) 103 meq/L 98-107 (test code = 382) CO2 (BEAKER) (test 23 meq/L 22-29 code = 355) BLOOD UREA NITROGEN 9 mg/dL 7-21 (BEAKER) (test code = 354) CREATININE (BEAKER) 0.57 mg/dL 0.57-1.25 (test code = 358) GLUCOSE RANDOM 113 mg/dL 70-105 H (BEAKER) (test code = 652) CALCIUM (BEAKER) 9.0 mg/dL 8.4-10.2 (test code = 697) EGFR (BEAKER) (test 114 mL/min/1.73 ESTIM ATED GFR IS code = 1092) sq m NOT ACCURATE CREATININE CLEARANCE IN PREDICTING GLOMERULAR FILTRATION RATE . ESTIMATED GFR I S NOT APPLICABLE FOR DIALYSIS PATIEN TS. CREATINE KINASE (CK), TOTAL AND [id number] 20:03:00 Test Item Value Reference Range Interpretation Comments CREATINE KINASE TOTAL (BEAKER) 36 U/L 29-200 (test code = 380) CREATINE KINASE-MB (BEAKER) (test 1.0 ng/mL 0.0-6.6 code = 750) CREATINE KINASE-MB INDEX (BEAKER) 2.8 % (test code = 395) Effective 08/31/2014: CK-MB Reference Range ChangeNew: 0.0-6.6 Previous: 0.0-4.9CK-MB Reference Range:<6.7 Normal6.7-10.0 Borderline>10.0 AbnormalTROPONIN [id number] 20:03:00 Test Item Value Reference Range Interpretation Comments TROPONIN I (BEAKER) (test code = 397) < ng/mL 0.00-0.03 Effective 08/31/2014: Reference Range ChangeNew: 0.00-0.03 Previous 0.00- 0.15Troponin I (TnI) levels must be interpreted in the context of the presenting symptoms and the clinical findings. Elevated TnI levels indicate myocardial damage, but are not specific for ischemic heart disease. Elevated TnI levels are seen in patients with other cardiac conditions (including myocarditis and congestive heartfailure), and slight TnI elevations occur in patients with other conditions, including sepsis, renalfailure, acidosis, acute neurological disease, and persistent tachyarrhythmia.POCT-GLUCOSE [id number] 17:57:00 Test Item Value Reference Range Interpretation Comments POC-GLUCOSE METER 103 mg/dL 70-110 TESTED AT [facility] 6720 (BEAKER) (test code = [facility] Jenna [facility] 1538) [address] POCT-GLUCOSE [id number] 12:33:00 Test Item Value Reference Range Interpretation Comments POC-GLUCOSE METER 87 mg/dL 70-110 TESTED AT [facility] 6720 (BEAKER) (test code = [facility] [address] 1538) BASIC METABOLIC [id number] 10:27:00 Test Item Value Reference Range Interpretation Comments SODIUM (BEAKER) 138 meq/L 136-145 (test code = 381) POTASSIUM (BEAKER) 3.7 meq/L 3.5-5.1 (test code = 379) CHLORIDE (BEAKER) 109 meq/L 98-107 H (test code = 382) CO2 (BEAKER) (test 18 meq/L 22-29 L code = 355) BLOOD UREA NITROGEN 7 mg/dL 7-21 (BEAKER) (test code = 354) CREATININE (BEAKER) 0.58 mg/dL 0.57-1.25 (test code = 358) GLUCOSE RANDOM 127 mg/dL 70-105 H (BEAKER) (test code = 652) CALCIUM (BEAKER) 8.5 mg/dL 8.4-10.2 (test code = 697) EGFR (BEAKER) (test 112 mL/min/1.73 ESTIM ATED GFR IS code = 1092) sq m NOT ACCURATE CREATININE CLEARANCE IN PREDICTING GLOMERULAR FILTRATION RATE . ESTIMATED GFR I S NOT APPLICABLE FOR DIALYSIS PATIEN TS. LIPID [id number] 08:02:00 Test Item Value Reference Range Interpretation Comments TRIGLYCERIDES (BEAKER) 154 mg/dL Speci men moderately (test code = 540) hemolyzed CHOLESTEROL (BEAKER) 144 mg/dL Specime n moderately (test code = 631) hemolyzed HDL CHOLESTEROL (BEAKER) 38 mg/dL (test code = 976) LDL CHOLESTEROL 75 mg/dL CALCULATED (BEAKER) (test code = 633) Triglyceride Reference Range: Low Risk <150 Borderline 150-199 High Risk 200-499 Very High Risk >=500Cholesterol Reference Range: Low Risk <200 Borderline 200-239 High Risk >240HDL Cholesterol Reference Range: Low Risk >=60 High Risk <40LDL Cholesterol Reference Range: Optimal <100 Near Optimal 100-129 Borderline 130-159 High 160-189 Very High >=190 FastingHEPATIC FUNCTION [id number] 08:02:00 Test Item Value Reference Range Interpretation Comments TOTAL PROTEIN (BEAKER) 6.9 gm/dL 6.0-8.3 Speci men moderately (test code = 770) hemolyzed ALBUMIN (BEAKER) (test 3.7 g/dL 3.5-5.0 Speci men moderately code = 1145) hemolyzed BILIRUBIN TOTAL 0.2 mg/dL 0.2-1.2 Specimen mod erately (BEAKER) (test code = hemoly zed 377) BILIRUBIN DIRECT < mg/dL 0.1-0.5 L Specimen mo derately (BEAKER) (test code = hemoly zed 706) ALKALINE PHOSPHATASE 82 U/L 40-150 (BEAKER) (test code = 346) AST (SGOT) (BEAKER) 28 U/L 5-34 Specimen moderately (test code = 353) hemolyzed ALT (SGPT) (BEAKER) 16 U/L 6-55 Specimen moderately (test code = 347) hemolyzed FastingBASIC METABOLIC [id number] 08:01:00 Test Item Value Reference Range Interpretation Comments SODIUM (BEAKER) 136 meq/L 136-145 (test code = 381) POTASSIUM (BEAKER) 6.0 meq/L 3.5-5.1 HH Specimen moderately (test code = 379) hemolyzed CHLORIDE (BEAKER) 112 meq/L 98-107 H (test code = 382) CO2 (BEAKER) (test 15 meq/L 22-29 L code = 355) BLOOD UREA NITROGEN 9 mg/dL 7-21 (BEAKER) (test code = 354) CREATININE (BEAKER) 0.57 mg/dL 0.57-1.25 Specimen moderately (test code = 358) hemolyzed GLUCOSE RANDOM 93 mg/dL 70-105 (BEAKER) (test code = 652) CALCIUM (BEAKER) 8.1 mg/dL 8.4-10.2 L (test code = 697) EGFR (BEAKER) (test 114 mL/min/1.73 ESTIM ATED GFR IS code = 1092) sq m NOT ACCURATE CREATININE CLEARANCE IN PREDICTING GLOMERULAR FILTRATION RATE . ESTIMATED GFR I S NOT APPLICABLE FOR DIALYSIS PATIEN TS. FastingCREATINE KINASE (CK), TOTAL AND [id number] 07:52:00 Test Item Value Reference Range Interpretation Comments CREATINE KINASE TOTAL (BEAKER) 62 U/L 29-200 (test code = 380) CREATINE KINASE-MB (BEAKER) (test 1.6 ng/mL 0.0-6.6 code = 750) CREATINE KINASE-MB INDEX (BEAKER) 2.6 % (test code = 395) Effective 08/31/2014: CK-MB Reference Range ChangeNew: 0.0-6.6 Previous: 0.0-4.9CK-MB Reference Range:<6.7 Normal6.7-10.0 Borderline>10.0 AbnormalFastingFastingTROPONIN [id number] 07:24:00 Test Item Value Reference Range Interpretation Comments TROPONIN I (BEAKER) (test code = 0.01 ng/mL 0.00-0.03 397) Effective 08/31/2014: Reference Range ChangeNew: 0.00-0.03 Previous 0.00- 0.15Troponin I (TnI) levels must be interpreted in the context of the presenting symptoms and the clinical findings. Elevated TnI levels indicate myocardial damage, but are not specific for ischemic heart disease. Elevated TnI levels are seen in patients with other cardiac conditions (including myocarditis and congestive heartfailure), and slight TnI elevations occur in patients with other conditions, including sepsis, renalfailure, acidosis, acute neurological disease, and persistent tachyarrhythmia.[id number] 06:52:00 Test Item Value Reference Range Interpretation Comments HOMOCYSTEINE (BEAKER) (test code = 4.6 umol/L 5.1-15.4 L 642) CBC W/PLT COUNT & AUTO [id number] 06:52:00 Test Item Value Reference Range Interpretation Comments WHITE BLOOD CELL COUNT (BEAKER) 8.8 K/ L 4.0-10.0 (test code = 775) RED BLOOD CELL COUNT (BEAKER) 2.97 M/ L 4.00-5.00 L (test code = 761) HEMOGLOBIN (BEAKER) (test code = 11.4 GM/DL 12.0-15.0 L 410) HEMATOCRIT (BEAKER) (test code = 33.5 % 36.0-45.0 L 411) MEAN CORPUSCULAR VOLUME (BEAKER) 113.0 fL 82.0-99.0 H (test code = 753) MEAN CORPUSCULAR HEMOGLOBIN 38.3 pg 27.0-33.0 H (BEAKER) (test code = 751) MEAN CORPUSCULAR HEMOGLOBIN CONC 33.9 GM/DL 32.0-36.0 (BEAKER) (test code = 752) RED CELL DISTRIBUTION WIDTH 12.9 % 10.3-14.2 (BEAKER) (test code = 412) PLATELET COUNT (BEAKER) (test 333 K/CU MM 150-430 code = 756) MEAN PLATELET VOLUME (BEAKER) 6.2 fL 6.5-10.5 L (test code = 754) NUCLEATED RED BLOOD CELLS 0 /100 WBC 0-0 (BEAKER) (test code = 413) NEUTROPHILS RELATIVE PERCENT 59 % (BEAKER) (test code = 429) LYMPHOCYTES RELATIVE PERCENT 30 % (BEAKER) (test code = 430) MONOCYTES RELATIVE PERCENT 9 % (BEAKER) (test code = 431) EOSINOPHILS RELATIVE PERCENT 1 % (BEAKER) (test code = 432) BASOPHILS RELATIVE PERCENT 1 % (BEAKER) (test code = 437) NEUTROPHILS ABSOLUTE COUNT 5.20 K/ L 1.80-8.00 (BEAKER) (test code = 670) LYMPHOCYTES ABSOLUTE COUNT 2.62 K/ L 1.48-4.50 (BEAKER) (test code = 414) MONOCYTES ABSOLUTE COUNT (BEAKER) 0.76 K/ L 0.00-1.30 (test code = 415) EOSINOPHILS ABSOLUTE COUNT 0.10 K/ L 0.00-0.50 (BEAKER) (test code = 416) BASOPHILS ABSOLUTE COUNT (BEAKER) 0.09 K/ L 0.00-0.20 (test code = 417) 0.00
[2021-04-14] MEDS ORDERED: NA CHLORIDE 0.9% 1,000 ML ONE (10:05)
[2021-04-14] MEDS ORDERED: DIPHENHYDRAMINE 50 MG/ML VIAL ONE (10:05)
[2021-04-14] MEDS ORDERED: METOCLOPRAMIDE 10 MG/2mL INJ ONE (10:05)
[2021-04-14] MEDS ORDERED: LORazepam 2 MG/ML VIAL ONE (10:59)
[2021-04-14] MEDS ORDERED: dexAMETHasone 10 MG/ML VIAL ONE (11:49)
--- NOTE | 2021-04-14 12:14 | ER ---
Nurse's Notes [facility] Name: Savannah Gómez Age: 51 yrs Sex: Female : 1970 Arrival Date: 04/14/2021 Time: 09:21 Bed 20 Private MD: Diagnosis: Migraine without aura, not intractable Presentation: 04/14 09:37 Chief complaint: Patient states: hx of migraines, this headache started yesterday, last iw headache was 2 months ago , has been taking OTC medicine with no relief, feels similar to past migraines , pain /. Coronavirus screen: At this time, the client does not indicate any symptoms associated with coronavirus-19. Ebola Screen: Patient negative for fever greater than or equal to 101.5 degrees Fahrenheit, and additional compatible Ebola Virus Disease symptoms Patient denies exposure to infectious person. Patient denies travel to an Ebola-affected area in the 21 days before illness onset. No symptoms or risks identified at this time. Initial Sepsis Screen: Does the patient meet any 2 criteria? No. Patient's initial sepsis screen is negative. Does the patient have a suspected source of infection? No. Patient's initial sepsis screen is negative. Risk Assessment: Do you want to hurt yourself or someone else? Patient reports no desire to harm self or others. Onset of symptoms was April 13, 2021. 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 - Social history:: Smoking status: Patient reports the use of cigarette tobacco products, smokes one pack cigarettes per day. Screenin:44 Abuse screen: Denies threats or abuse. Nutritional screening: No deficits noted. jd3 Tuberculosis screening: No symptoms or risk factors identified. Fall Risk Ambulatory Aid- None/Bed Rest/Nurse Assist (0 pts). Gait- Normal/Bed Rest/Wheelchair (0 pts) Mental Status- Oriented to own ability (0 pts). Total Christian Fall Scale indicates No Risk (0-24 pts). Assessment: 10:08 General: Appears in no apparent distress. uncomfortable, Behavior is calm, cooperative, jd3 appropriate for age, crying. Pain: Complains of pain in head Quality of pain is described as pressure, sharp, Also complains of nausea. Neuro: Level of Consciousness is awake, alert, obeys commands, Oriented to person, place, time, situation. Cardiovascular: Denies chest pain, Capillary refill < 3 seconds Patient's skin is warm and dry. Respiratory: Airway is patent Respiratory effort is even, unlabored, Respiratory pattern is regular, symmetrical, Denies cough, shortness of breath. GI: Reports nausea, Patient currently denies abdominal pain. : No signs and/or symptoms were reported regarding the genitourinary system. EENT: No signs and/or symptoms were reported regarding the EENT system. Derm: Skin is intact, Skin is dry, Skin is normal, Skin temperature is warm. Musculoskeletal: Circulation, motion, and sensation intact. Range of motion: intact in all extremities. 10:44 Reassessment: Patient and/or family updated on plan of care and expected duration. Pain jd3 level reassessed. Patient is alert, oriented x 3, equal unlabored respirations, skin warm/dry/pink. pt reporting anxiety feeling from Reglan. provider notified. Ativan 1 mg given as orderedl. 11:33 Reassessment: Patient appears in no apparent distress at this time. Patient and/or jd3 family updated on plan of care and expected duration. Pain level reassessed. Patient is alert, oriented x 3, equal unlabored respirations, skin warm/dry/pink. pt reporting anxious feeling again after restarting fluids/Reglan. infusion stopped, provider notified. medicated with 10 mg Decadron as ordered see MAR. 12:05 Reassessment: Patient appears in no apparent distress at this time. Patient and/or jd3 family updated on plan of care and expected duration. Pain level reassessed. Patient is alert, oriented x 3, equal unlabored respirations, skin warm/dry/pink. provider at bedside discussing plan of care. 12:24 Reassessment: Patient appears in no apparent distress at this time. Patient and/or jd3 family updated on plan of care and expected duration. Pain level reassessed. Patient is alert, oriented x 3, equal unlabored respirations, skin warm/dry/pink. reported understanding of discharge instructions. even and steady gait upon discharge. Vital Signs: 09:37 BP 145 / 90; Pulse 98; Resp 16 S; Temp 97.4; Pulse Ox 100% on R/A; Weight 54.43 kg; iw Height 5 ft. 5 in. (165.10 cm); Pain 8/10; 12:12 BP 141 / 85; Pulse 101; Resp 17 S; Pulse Ox 100% on R/A; jd3 09:37 Body Mass Index 19.97 (54.43 kg, 165.10 cm) iw ED Course: 09:21 Patient arrived in ED. ds1 09:25 Moi Ewing PA is PHCP. jm 09:25 Rios Rubi MD is Attending Physician. [facility] 09:39 Triage completed. iw 09:41 Armin Aragon, RN is Primary Nurse. jd3 09:43 Arm band placed on. iw 10:08 Accessed peripheral vein via ultrasound, utilizing dynamic ultrasound technique using jd3 20G Nexia IV catheter ,sterile technique, per hospital protocol. Clean \T\ dry. Dressing intact. Good blood return. Flushes easily. 10:45 Patient has correct armband on for positive identification. Bed in low position. Call jd3 light in reach. Side rails up X 1. Adult w/ patient. Pulse ox on. NIBP on. 12:25 No provider procedures requiring assistance completed. IV discontinued, intact, jd3 bleeding controlled, No redness/swelling at site. Pressure dressing applied. Administered Medications: 10:07 Drug: NS 0.9% 1000 ml Route: IV; Rate: 1000 ml; Site: right antecubital; jd3 10:45 Follow up: Response: Adverse reaction, Physician notified; Adverse reaction, Physician jd3 notified: reported anxiety. ordered to discontinue infusion.; IV Status: Order to discontinue infusion 10:08 Drug: Reglan (metoCLOPramide) 20 mg Route: IVP; Site: right antecubital; jd3 12:28 Follow up: Response: No adverse reaction jd3 10:08 Drug: diphenhydrAMINE 25 mg Route: IVP; Site: right antecubital; jd3 11:00 Follow up: Response: No adverse reaction jd3 10:42 Drug: Ativan (LORazepam) 1 mg Route: IVP; Site: right antecubital; jd3 11:40 Follow up: Response: No adverse reaction jd3 11:33 Drug: Decadron - Dexamethasone 10 mg Route: IVP; Site: right antecubital; jd3 12:29 Follow up: Response: No adverse reaction jd3 Outcome: 12:13 Discharge ordered by . ana 12:25 Discharged to home ambulatory, with family. jd3 12:25 Condition: stable 12:25 Discharge instructions given to patient, family, Instructed on discharge instructions, follow up and referral plans. Demonstrated understanding of instructions, follow-up care. 12:26 Patient left the ED. jd3 Signatures: Moi Ewing PA PA jmm Sanford, Demi ds1 Teresa Rios RN RN iw Armin Aragon RN RN jd3
--- NOTE | 2021-04-14 12:14 | EDPHYS ---
Physician Documentation [facility] Name: Savannah Gómez Age: 51 yrs Sex: Female : 1970 Arrival Date: 04/14/2021 Time: 09:21 Bed 20 Private MD: ED Physician Rios Rubi HPI: 04/14 09:31 This 51 yrs old Female presents to ER via Ambulatory with complaints of jmm Migraine. 09:31 The patient complains of pain to the forehead, right islam and left islam. Onset: The jmm symptoms/episode began/occurred gradually, 1 day(s) ago. Associated signs and symptoms: Pertinent positives: Photophobia. Headache History: The patient has had previous headaches and this one is similar to previous episodes. The symptoms are alleviated by nothing. the symptoms are aggravated by nothing. The patient has experienced similar episodes in the past, several times. 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 - Social history:: Smoking status: Patient reports the use of cigarette tobacco products, smokes one pack cigarettes per day. ROS: 09:31 Constitutional: Negative for fever, chills, and weight loss, Cardiovascular: Negative jmm for chest pain, palpitations, and edema, Respiratory: Negative for shortness of breath, cough, wheezing, and pleuritic chest pain. 09:31 Neuro: Positive for headache. 09:31 All other systems are negative. Exam: 12:09 Constitutional: This is a well developed, well nourished patient who is awake, alert, jmm and in no acute distress. Head/Face: atraumatic. Eyes: EOMI, no conjunctival erythema appreciated ENT: Moist Mucus Membranes Neck: Trachea midline, Supple Chest/axilla: Normal chest wall appearance and motion. Cardiovascular: Regular rate and rhythm. No edema appreciated Respiratory: Normal respirations, no respiratory distress appreciated Abdomen/GI: Non distended, soft Skin: General appearance color normal MS/ Extremity: Moves all extremities, no obvious deformities appreciated, no edema noted to the lower extremities Neuro: Awake and alert, normal gait Psych: Behavior is normal, Mood is normal, Patient is cooperative and pleasant Vital Signs: 09:37 BP 145 / 90; Pulse 98; Resp 16 S; Temp 97.4; Pulse Ox 100% on R/A; Weight 54.43 kg; iw Height 5 ft. 5 in. (165.10 cm); Pain 8/10; 12:12 BP 141 / 85; Pulse 101; Resp 17 S; Pulse Ox 100% on R/A; jd3 09:37 Body Mass Index 19.97 (54.43 kg, 165.10 cm) iw MDM: 09:31 Patient medically screened. [facility] 12:09 Data reviewed: vital signs, nurses notes. Counseling: I had a detailed discussion with [facility] the patient and/or guardian regarding: the historical points, exam findings, and any diagnostic results supporting the discharge/admit diagnosis, the need for outpatient follow up, to return to the emergency department if symptoms worsen or persist or if there are any questions or concerns that arise at home. ED course: Headache was not relieved according to the patient. Patient exhibited drug seeking behavior. The patient stated she is also allergic to Imitrex when offered. Patient requested Dilaudid and we explained we did not treat migraines with narcotics. . 02 09:34 Order name: Saline Lock; Complete Time: 10:07 [facility] Administered Medications: 10:07 Drug: NS 0.9% 1000 ml Route: IV; Rate: 1000 ml; Site: right antecubital; jd3 10:45 Follow up: Response: Adverse reaction, Physician notified; Adverse reaction, Physician jd3 notified: reported anxiety. ordered to discontinue infusion.; IV Status: Order to discontinue infusion 10:08 Drug: Reglan (metoCLOPramide) 20 mg Route: IVP; Site: right antecubital; jd3 12:28 Follow up: Response: No adverse reaction jd3 10:08 Drug: diphenhydrAMINE 25 mg Route: IVP; Site: right antecubital; jd3 11:00 Follow up: Response: No adverse reaction jd3 10:42 Drug: Ativan (LORazepam) 1 mg Route: IVP; Site: right antecubital; jd3 11:40 Follow up: Response: No adverse reaction jd3 11:33 Drug: Decadron - Dexamethasone 10 mg Route: IVP; Site: right antecubital; jd3 12:29 Follow up: Response: No adverse reaction jd3 Disposition Summary: 04/14/21 12:13 Discharge Ordered Location: Home jmm Condition: Stable jmm Diagnosis - Migraine without aura, not intractable jmm Followup: jmm - With: Private Physician - When: 2 - 3 days - Reason: Recheck today's complaints, Continuance of care, Re-evaluation by your physician Discharge Instructions: - Discharge Summary Sheet jm - Migraine Headache [facility] Forms: - Medication Reconciliation Form [facility] - Thank You Letter [facility] - Antibiotic Education [facility] - Prescription Opioid Use [facility] Addendum: 04/17/2021 13:28 Co-signature as Attending Physician, Rios Rubi MD I agree with the assessment and k dr plan of care. Signatures: Rios Rubi MD MD [facility] Moi Ewing PA PA [facility] Teresa Rios, RN Armin Priest RN RN jd3
[2021-04-14 12:30] VITALS: TEMP 97.4; O2SAT 100
[2021-04-14 12:31] VITALS: BP 141/85
== END 2021-04-14 12:26 | disposition home or self-care (01) ==
LOC: ER 09:17
DX: G43.009 Migraine without aura, not intractable, without status migrainosus (principal); F17.210 Nicotine dependence, cigarettes, uncomplicated; Z85.3 Personal history of malignant neoplasm of breast; Z88.0 Allergy status to penicillin; Z88.5 Allergy status to narcotic agent; Z90.13 Acquired absence of bilateral breasts and nipples
CPT/HCPCS: 96361; 96374; 96375; 99284; J1100; J1200; J2765; J7030